=== PATIENT | male | born 1960 | race Caucasian/White ===

== ENCOUNTER 2018-02-03 22:48 | Emergency (ER) | payer SELFPAY ==
[2018-02-03] MEDS ORDERED: Acetaminophen 500 MG TAB ONE (23:25)
[2018-02-03 23:56] LABS: #Monocytes 0.8 thou/uL (0.11-0.59); #Neutrophils 8.8 thou/uL (1.40-6.50); %Basophils 0.4 % (0.0-1.0); %Eosinophils 0.4 % (0.0-10.0); %Lymphocytes 8.9 % (21.0-51.0); %Monocytes 7.7 % (0.0-10.0); %Neutrophils 82.7 % (42.0-75.0); Hemoglobin 14.4 g/dL (14.0-18.0); Mean Corpuscular HGB CONC 34.9 g/dL (32.0-36.0); Mean Corpuscular Hemoglobin 30.6 pg (27.0-31.0); Mean Corpuscular Volume 87.9 fL (78.0-98.0); Mean Platelet Volume 5.7 fL (7.4-10.4); Platelet Count 315 thou/uL (130-400); RBC Distribution Width 12.4 % (11.5-14.5); Red Blood Cell (RBC) Count 4.69 mill/uL (4.70-6.10); White Blood Cell (WBC) Count 10.7 thou/uL (4.8-10.8)
[2018-02-04 00:13] LABS: Alcohol Less than 10 mg/dL (Less than 10); Salicylate Less than 8.0 mg/dL (15.0-30.0)
[2018-02-04 00:17] LABS: ALT (SGPT) 21 U/L (8-55); AST (SGOT) 32 U/L (5-34); Albumin 4.8 g/dL (3.5-5.0); Alkaline Phosphatase 66 U/L (40-150); Anion Gap 17 mmol/L (10-20); BUN (Urea Nitrogen) 23 mg/dL (8.4-25.7); Bilirubin, Total 1.4 mg/dL (0.2-1.2); CK (CPK) 912 U/L (30-200); Calc. Creatinine Clearance 0 mL/min (70-130); Carbon Dioxide 22 mmol/L (22-29); Chloride 104 mmol/L (98-107); Estimated GFR-MDRD 57; Globulin 3.4 g/dL (2.4-3.5); Glucose 127 mg/dL (70-105); Potassium 3.9 mmol/L (3.5-5.1); Protein, Total 8.2 g/dL (6.0-8.3); Sodium 139 mmol/L (136-145)
[2018-02-04 03:13] LABS: Medtox Reader # READER 4; Phencyclidine (PCP) Not Detected (NotDetected); THC/Cannabinoid Screen Not Detected (NotDetected)
[2018-02-04 03:15] LABS: Amphetamine Detected (NotDetected); Barbiturates Screen Not Detected (NotDetected); Benzodiazepine Screen Not Detected (NotDetected); Cocaine Metabolite Screen Detected (NotDetected); Medtox Control Line Valid? VALID (VALID); Methadone Not Detected (NotDetected); Methamphetamine Detected (NotDetected); Opiate Screen Not Detected (NotDetected); Oxycodone Screen Not Detected (NotDetected); Tricyclic Screen Not Detected (NotDetected)
== END 2018-02-04 03:35 ==
LOC: ERS 22:48
DX: F15.10 Other stimulant abuse, uncomplicated (principal); F41.9 Anxiety disorder, unspecified; F20.9 Schizophrenia, unspecified; F17.210 Nicotine dependence, cigarettes, uncomplicated; K27.9 Peptic ulcer, site unspecified, unspecified as acute or chronic, without hemorrhage or perforation
CPT/HCPCS: 36415; 80053; 80306; 80307; 82550; 83605; 85025; 86850; 86900; 86901; 87040; 96360; 96361

== ENCOUNTER 2018-08-24 10:11 | Day surgery (SDC) | payer OTHER ==
--- NOTE | 2018-08-20 12:21 | HP ---
HISTORY OF PRESENT ILLNESS: A 57-year-old [facility] inmate, incarcerated for 30 days on drug-related charges. He is from [place], he has been [address] prior to this incarceration. Unknown duration of incarceration. In 2011, he had an open inguinal hernia repair in [place]. He does not recall of mesh was used. He states this recurs shortly after this operation, it has been enlarging into his scrotum and bothersomed him. On exam today, he was appreciated to have a large right inguinal hernia extending to scrotum on standing, enlarging on Valsalva and a left inguinal hernia in addition. Plan is for laparoscopic robotic repair using mesh bilateral inguinal hernias. ALLERGIES: CODEINE CAUSES GI UPSET. SOCIAL HISTORY: Tobacco: None. Alcohol: None. 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 The patient has worked previously as an electrician's assistant. PAST SURGICAL HISTORY: Hand surgery, right inguinal hernia repair, unknown what the mesh was used, performed in [place], 2011, recurrent shortly postoperatively. PAST MEDICAL HISTORY: Noncontributory. REVIEW OF SYSTEMS: A 10-point noncontributory. PHYSICAL EXAMINATION: VITAL SIGNS: Blood pressure 151/87, pulse 71, temperature 98.6 degrees. Weight 161 pounds. HEENT: Unremarkable. LUNGS: Clear to auscultation. CARDIAC: Regular rhythm without murmur or gallop. ABDOMEN: Soft. Nontender, nondistended. Thin male. Large inguinal hernia on standing, enlarges on Valsalva. Left inguinal hernia on exam, protrudes when standing, enlarges on Valsalva. Testicles were normal. ASSESSMENT AND PLAN: Large recurrent right inguinal hernia, asymptomatic left inguinal hernia. We would recommend laparoscopic robotic mesh repair of recurrent right inguinal hernia and left inguinal hernia. Risk of infection, bleeding, re-operation, and recurrence were explained and he consents and questions answered. Job ID: [id number]
[2018-08-24 10:53] LABS: #Basophils 0.1 thou/uL (0.0-0.2); #Eosinphils 0.5 thou/uL (0.0-0.7); #Lymphocytes 1.9 thou/uL (1.20-3.40); #Monocytes 0.7 thou/uL (0.11-0.59); #Neutrophils 3.4 thou/uL (1.40-6.50); %Basophils 1.6 % (0.0-1.0); %Eosinophils 8.3 % (0.0-10.0); %Lymphocytes 28.4 % (21.0-51.0); %Monocytes 10.2 % (0.0-10.0); %Neutrophils 51.5 % (42.0-75.0); Hemoglobin 15.4 g/dL (14.0-18.0); Mean Corpuscular Hemoglobin 29.4 pg (27.0-31.0); Mean Corpuscular Volume 89.1 fL (78.0-98.0); Platelet Count 295 thou/uL (130-400); RBC Distribution Width 12.1 % (11.5-14.5); Red Blood Cell (RBC) Count 5.23 mill/uL (4.70-6.10); White Blood Cell (WBC) Count 6.5 thou/uL (4.8-10.8)
[2018-08-24] MEDS ORDERED: Ketorolac Tromethamine 30 MG/ML VIAL ONE (11:16)
[2018-08-24] MEDS ORDERED: CEFAZOLIN 2 GM/50 ML BAG ONE (11:16)
[2018-08-24 11:34] LABS: Anion Gap 11 mmol/L (10-20); BUN (Urea Nitrogen) 17 mg/dL (8.4-25.7); Calc. Creatinine Clearance 0 mL/min (70-130); Calcium 9.9 mg/dL (7.8-10.44); Carbon Dioxide 28 mmol/L (22-29); Chloride 104 mmol/L (98-107); Estimated GFR-MDRD 73; Glucose 93 mg/dL (70-105); Potassium 4.4 mmol/L (3.5-5.1); Sodium 139 mmol/L (136-145)
[2018-08-24] MEDS ORDERED: Bupivacaine HCl 0.5%/Epinephrine 1:200,000/PF 30 ml Vial ONE (12:15)
[2018-08-24] MEDS ORDERED: Fentanyl 250 MCG/5 ML VIAL ONE (12:18)
[2018-08-24] MEDS ORDERED: Fentanyl 100 MCG/2 ML VIAL ONE (15:56)
--- NOTE | 2018-08-24 16:58 | EKG ---
Test Reason : PREOP Blood Pressure : / mmHG Vent. Rate : 072 BPM Atrial Rate : 072 BPM P-R Int : 128 ms QRS Dur : 090 ms QT Int : 400 ms P-R-T Axes : 058 052 060 degrees QTc Int : 438 ms Normal sinus rhythm Normal ECG No previous ECGs available Confirmed by DR. Arian ALLEN ([id number]) on 08/24/2018 4:58:07 PM Referred By: CHANDANA Confirmed By:DR. Arian ALLEN
[2018-08-24] MEDS ORDERED: Lidocaine 1% PF 5 ML VIAL ONE (17:00)
[2018-08-24] MEDS ORDERED: Rocuronium Bromide 10 MG/ML (10ML VIAL) ONE (17:00)
[2018-08-24] MEDS ORDERED: Ondansetron PF 4 MG/2 ML Vial ONE (17:00)
[2018-08-24] MEDS ORDERED: Glycopyrrolate 0.2 MG/ML 5 ML SYRINGE ONE (17:00)
[2018-08-24] MEDS ORDERED: PHENYLEPHRINE-NS 100 MCG/ML 10 ML SYRINGE ONE (17:00)
[2018-08-24] MEDS ORDERED: PROPOFOL 200 MG/20 ML VIAL ONE (17:00)
[2018-08-24] MEDS ORDERED: traMADol HCl 50 MG TAB ONE (17:03)
--- NOTE | 2018-08-24 22:27 | OP ---
DATE OF PROCEDURE: 08/24/2018 PREOPERATIVE DIAGNOSES: Bilateral inguinal hernias, recurrent right inguinal hernia, previously repaired with mesh. POSTOPERATIVE DIAGNOSES: Bilateral inguinal hernias, recurrent right inguinal hernia, previously repaired with mesh. PROCEDURES PERFORMED: Robot repair of bilateral inguinal hernias, recurrent right inguinal hernia and removal of old mesh, right inguinal hernia repair. ANESTHESIA: General, local 0.5% Marcaine with epinephrine 30 mL. DESCRIPTION OF PROCEDURE: The patient was taken to the operating room where under general anesthesia, Link catheter was placed at the beginning of the procedure, removed at the end. Abdomen was clipped of hair, prepared with ChloraPrep and draped in routine fashion. Supraumbilical incision was made to the left of midline and pneumoperitoneum to 15 mm was obtained with a Veress needle, replaced with an 11 balloon port. Bilateral mid lateral abdominal incision was made, and an 8-mm port was placed. The robot was docked, properly positioned and robot repair of bilateral inguinal hernias was undertaken. There was a very large recurrent right inguinal hernia into the scrotum. This was an indirect hernia. On the left, there was more of a direct hernia. A flap of peritoneum was dissected free superiorly from the anterior superior iliac spine toward the midline, dissected free lateral and medial to the large hernia defect on the right. The peritoneal sac was adherent to the scrotum from the previous repair and mesh was evident medially. The mesh was not covering the defect at all. Identified the Omar ligament, medially and laterally the flap was dissected free. The hernia sac was dissected free, but all the hernia sac could not be removed from the scrotum. The inferior epigastric vessels were kept free of harm as the mesh was dissected free and placed in the peritoneum for later removal. The hernia sac was dissected free posteriorly and within the scrotum transected and brought down into the peritoneum for a later peritoneal flap. Hernia contents had to be reduced from the hernia defect. This consisted of cecum and small bowel. Once the hernia sac was dissected free and the cord structures were dissected free, a 3DMax mesh was obtained for the right inguinal hernia defect and placed properly covering the cord structures for at least 8 cm in the hernia defect. It was secured to Omar ligament with 2-0 Vicryl and the anterior abdominal wall lateral to the inferior epigastric vessels with 2-0 Vicryl. The hernia sac was then secured and approximated with continuous suture with #2-0 V-Loc. Once this was completed, attention was then turned to the left side. The peritoneal flap was dissected free from the anterior superior iliac spine left to the midline and flap dissected free, dissecting the hernia sac from the hernia defect, identifying the cord structures, dissecting them free for at least 8 cm. A 3DMax mesh was then placed over the pelvic floor and secured to Omar ligament, left to midline with 2-0 Vicryl and to the anterior abdominal wall anteriorly just to the patient's left of the inferior epigastric vessels using 2-0 Vicryl. Once this was completed, the peritoneal flap was closed with continuous suture of 2-0 V-Loc. Good hemostasis was obtained. All needles were removed. The old mesh was placed in the Endopouch and removed. Good hemostasis had been noted. Pneumoperitoneum had been reduced. All instruments were removed and all skin incisions were approximated with interrupted subdermal 4-0 Monocryl and Barclay glue applied. The patient tolerated the procedure well. Job ID: [id number]
== END 2018-08-24 17:52 | disposition home or self-care (01) ==
LOC: SDC 10:11 → EEVIPCON 10:11 → SDC 17:52
PROVIDERS: ATTEND Specialist
PROC: 0YUA4JZ Supplement Bilateral Inguinal Region with Synthetic Substitute, Percutaneous Endoscopic Approach (ICD-10-PCS; principal; 2018-08-24)
DX: K40.21 Bilateral inguinal hernia, without obstruction or gangrene, recurrent (principal); Z88.5 Allergy status to narcotic agent
CPT/HCPCS: 36415; 80048; 85025; 93005; 93010; C1781; J0131; J0670; J1885; J2001; J2405; J2704; J3010